=== PATIENT | female | born 1975 | race Caucasian/White ===

== ENCOUNTER → 2017-09-22 | Outpatient (CLI) | payer MEDICARE ==
[~2017-09-22] MED LIST: ACET325 PO; ALBU90OI INH; B Complex1 EAC2; IBUPROFEN200 MG PO; IRON150C; NASACORT10.8 ML NS; QVAR7.3 G1 INH; Vitamin A and1 EACH
[2017-09-22 12:00] LABS: Adenovirus F 40/41 Not Detected (NOT DETECT); Astrovirus Not Detected (NOT DETECT); Campylobacter Sp Not Detected (NOT DETECT); Cryptosporidium Not Detected (NOT DETECT); Cyclospora Cayetanensis Not Detected (NOT DETECT); E. Coli O157 Not Detected (NOT DETECT); Entamoeba Histolytica Not Detected (NOT DETECT); Enteroaggregative E. coli-EAEC Not Detected (NOT DETECT); Enteropathogenic E. coli-EPEC Not Detected (NOT DETECT); Enterotoxigenic E. coli-ETEC Not Detected (NOT DETECT); Giardia Lamblia Not Detected (NOT DETECT); Norovirus GI/GII Not Detected (NOT DETECT); Plesiomonas Shigelloides Not Detected (NOT DETECT); Rotavirus A Not Detected (NOT DETECT); Salmonella Sp Not Detected (NOT DETECT); Sapovirus Not Detected (NOT DETECT); Shiga Toxin-prod E. coli-STEC Not Detected (NOT DETECT); Shigella/Enteroin E. coli-EIEC Not Detected (NOT DETECT); Vibrio Cholerae Not Detected (NOT DETECT); Vibrio Sp Not Detected (NOT DETECT); Yersinia Enterocolitica Not Detected (NOT DETECT)
== END ==
LOC: LAB SHORT 10:15 → LAB UCHC 10:15
PROVIDERS: Nurse Practitioner Primary Care
DX: K30 Functional dyspepsia (principal)
CPT/HCPCS: 87338; 87507

== ENCOUNTER 2018-06-11 08:57 | Day surgery (SDC) | payer MEDICARE ==
[~2018-06-11] VITALS: Ht 154.9 cm; Wt 71.0 kg
[~2018-06-11 08:57] MED LIST changes: +ASTEPRO205.5 MCG/; +CALCIUM 500-VI1 EAC1 PO; +CRINONE1.125 GM TOP; +CYCL10 PO; +DICL75ER PO; +DIGESTIVE ENZY220 MG PO; +Dicyclomine HCl10 MG PO; +ESZO2 PO; +Fruity C250 MG PO; +MAGOXI400 PO; +Nexium40 MG PO; +Nortriptyline H10 MG PO; +PILO5 PO; +Sudogest30 MG PO; +XIIDRA1 EACH BOTHEYES; +[UNRECOGNIZED DRUG - OTHER]; +[UNRECOGNIZED DRUG - REMARK] PO
== END 2018-06-11 11:29 | disposition home or self-care (01) ==
LOC: ORSCSDS 08:57
PROVIDERS: Internal Medicine Gastroenterology
PROC: 0DB68ZX Excision of Stomach, Via Natural or Artificial Opening Endoscopic, Diagnostic (ICD-10-PCS; principal; 2018-06-11 10:15)
PROC: 0DB98ZX Excision of Duodenum, Via Natural or Artificial Opening Endoscopic, Diagnostic (ICD-10-PCS; principal; 2018-06-11 10:15)
PROC: 0DB58ZX Excision of Esophagus, Via Natural or Artificial Opening Endoscopic, Diagnostic (ICD-10-PCS; principal; 2018-06-11 10:15)
DX: R12 Heartburn (principal); K21.9 Gastro-esophageal reflux disease without esophagitis; I10 Essential (primary) hypertension; J45.909 Unspecified asthma, uncomplicated; M79.7 Fibromyalgia; Z79.899 Other long term (current) drug therapy; Z87.891 Personal history of nicotine dependence
CPT/HCPCS: 88305; 88342; J2250; J7120

== ENCOUNTER → 2021-05-15 | Outpatient (CLI) | payer MEDICARE | END | disposition home or self-care (01) | LOC: LAB SHORT 12:36 | DX: N39.0 Urinary tract infection, site not specified (principal) | CPT/HCPCS: 87086 ==

== ENCOUNTER → 2021-11-23 | Outpatient (CLI) | payer MEDICARE ==
[2021-11-27 08:10] LABS: HPV 16 Negative (Negative); HPV 18 Negative (Negative); HPV OTHER HR TYPES Negative (Negative)
== END | disposition home or self-care (01) ==
LOC: LAB SHORT 17:33 → LAB 17:33
PROVIDERS: Advanced Practice Midwife
DX: Z01.419 Encounter for gynecological examination (general) (routine) without abnormal findings (principal)
CPT/HCPCS: 87624; G0123

== ENCOUNTER → 2021-12-27 | Outpatient (CLI) | payer MEDICARE | END | disposition home or self-care (01) | LOC: LAB SHORT 13:28 → LAB 13:28 | DX: T14.8XXA Other injury of unspecified body region, initial encounter (principal); W55.01XD Bitten by cat, subsequent encounter | CPT/HCPCS: 87070; 87075; 87205 ==

== ENCOUNTER → 2022-06-04 | Outpatient (CLI) | payer MEDICARE ==
[2022-06-04 14:28] LABS: C DIFFICILE DNA POSITIVE (Negative)
== END | disposition home or self-care (01) ==
LOC: LAB SHORT 11:00
PROVIDERS: Physician Assistant
DX: R19.7 Diarrhea, unspecified (principal)
CPT/HCPCS: 87324; 87493

== ENCOUNTER 2022-10-01 11:27 | Day surgery (SDC) | payer MEDICARE ==
[~2022-10-01] VITALS: Ht 154.9 cm; Wt 85.8 kg
--- NOTE | 2022-10-01 13:23 | NUR ---
10/01/22 1323 ESTEPHANIA GRIFFIN VS STRIP UNPRINTED PRIOR TO DC. PT STABLE THROUGHOUT EXAMS. END NOTE ORSC.RDS
[2022-10-01 14:09] VITALS: BP 108/80
== END 2022-10-01 14:08 | disposition home or self-care (01) ==
LOC: ORSCSDS 11:27
PROVIDERS: Internal Medicine Gastroenterology
PROC: 0DJD8ZZ Inspection of Lower Intestinal Tract, Via Natural or Artificial Opening Endoscopic (ICD-10-PCS; principal; 2022-10-01 12:45)
PROC: 0DB98ZX Excision of Duodenum, Via Natural or Artificial Opening Endoscopic, Diagnostic (ICD-10-PCS; principal; 2022-10-01 12:45)
PROC: 0DB68ZX Excision of Stomach, Via Natural or Artificial Opening Endoscopic, Diagnostic (ICD-10-PCS; principal; 2022-10-01 12:45)
DX: R10.9 Unspecified abdominal pain (principal); R12 Heartburn; I10 Essential (primary) hypertension; J45.909 Unspecified asthma, uncomplicated; M79.7 Fibromyalgia; Z79.899 Other long term (current) drug therapy; Z87.891 Personal history of nicotine dependence
CPT/HCPCS: 88305; 88342; J2704; J7120

== ENCOUNTER → 2022-12-27 | Outpatient (CLI) | payer MEDICARE ==
[2022-12-27 13:52] LABS: BASOPHILS ABSOLUTE AUTO 0.03 K/mm3 (0.00-0.23); BASOPHILS PERCENT AUTO 1 % (0-2); EOSINOPHILS ABSOLUTE AUTO 0.04 K/mm3 (0.00-0.68); EOSINOPHILS PERCENT AUTO 1 % (0-6); Hematocrit 37.4 % (33.0-51.0); Hemoglobin 12.7 g/dL (11.5-16.0); IMMATURE GRAN ABSOLUTE AUTO 0.01 K/mm3 (0.00-0.10); IMMATURE GRAN PERCENT AUTO 0 % (0-1); LYMPHOCYTES ABSOLUTE AUTO 1.86 K/mm3 (0.84-5.20); LYMPHOCYTES PERCENT AUTO 42 % (21-46); MONOCYTES ABSOLUTE AUTO 0.19 K/mm3 (0.16-1.47); MONOCYTES PERCENT AUTO 4 % (4-13); Mean Corpuscular HGB 31.7 pg (26.0-34.0); Mean Corpuscular Volume 93 fL (80-100); Mean Platelet Volume 9.4 fL (9.1-12.4); NEUTROPHILS ABSOLUTE AUTO 2.28 K/mm3 (1.96-9.15); NEUTROPHILS PERCENT AUTO 52 % (41-73); Platelet Count 343 K/mm3 (150-400); RDW Coefficient Variation 13.3 % (11.7-14.2); RDW Standard Deviation 45.4 fL (35.1-46.3); Red Blood Cell Count 4.01 M/mm3 (3.80-5.20); White Blood Cell Count 4.41 K/mm3 (4.00-11.30)
[2022-12-27 14:04] LABS: Albumin, Blood 4.3 g/dL (3.4-5.0); Albumin/Globulin Ratio 1.1 (0.8-1.8); Bilirubin, Total 0.4 mg/dL (0.1-1.0); Bun/Creatinine Ratio 19.2 (12.0-20.0); Calcium, Blood 9.5 mg/dL (8.5-10.1); Creatinine, Blood 0.78 mg/dL (0.40-1.00); Globulin, Blood 3.9 g/dL (2.2-4.0); Potassium, Blood 3.4 mmol/L (3.5-5.5); Total Protein, Blood 8.2 g/dL (6.4-8.2)
== END | disposition home or self-care (01) ==
LOC: LAB 13:47 → LAB SHORT 13:47
PROVIDERS: Chiropractor
DX: R07.89 Other chest pain (principal)
CPT/HCPCS: 80053; 83690; 84484; 85025

== ENCOUNTER 2024-12-01 06:14 | Day surgery (SDC) | payer MEDICARE ==
[2024-12-01] VITALS (11 sets, daily range): BP systolic 112–135; BP diastolic 48–89
[~2024-12-01] VITALS: Ht 154.9 cm; Wt 95.3 kg
[~2024-12-01 06:14] MED LIST changes: +ATOR20 PO; +BACL10 PO; +FLUTICASONE-SA1 EA11 INH; +Imitrex100 MG PO; +MAGNESIUM250 MG PO; +MIRALAX17 GM PO; +ONDA4 PO; +PSEUDOEPHEDRINE30 M2 PO; +Vitamin B Comple1 EA; +ZYRTEC10 M1 PO; +[UNRECOGNIZED DRUG - OTHER] PO
[2024-12-01] MEDS ORDERED: CeFAZolin Sodium 2,000 MG in NS 100 ML IV SCH (06:15)
[2024-12-01] MEDS ORDERED: ACET500 (07:04)
[2024-12-01] MEDS ORDERED: CeFAZolin Sodium 2,000 MG VIAL ONE (07:06)
[2024-12-01] MEDS ORDERED: Bupivacaine 0.5% HCl 5 MG/ML 30MLVIAL ONE (07:17)
[2024-12-01] MEDS ORDERED: Albuterol HFA200 ACT/6.7 GM INH ONE (07:27)
[2024-12-01] MEDS ORDERED: FentaNYL Citrate 50 MCG/ML 2 ML Injection ONE (07:27)
[2024-12-01] MEDS ORDERED: Midazolam HCl 1MG / ML 2ML Vial ONE (07:28)
--- NOTE | 2024-12-01 07:32 | NUR ---
Ambulatory in Day Surgery W/LIMP. PT STATES SHE HAS A BAD RIGHT ANKLE THAT HAS NOT HEALED AND IS CAUSING HER RIGHT THIGH TO SPASM Pre-Op teaching done. Pt verbalizes understanding. History, Chart, Medications and Allergies reviewed before start of procedure.Patient confirms NPO status and agrees with scheduled surgery. Patient reports completing Chlorhexadine shower X2 prior to admission to hospital.Patient States Post-Procedure ride home has been arranged.
--- NOTE | 2024-12-01 07:33 | NUR ---
PT'S GLASSES GIVEN TO HER AUNT
[2024-12-01] MEDS ORDERED: Rocuronium Bromide 10 MG/ML 5ML Injection IV ONE ×2 (07:35→09:14)
[2024-12-01] MEDS ORDERED: Ondansetron HCl 2 MG / ML 2ML Vial ONE (08:33)
[2024-12-01] MEDS ORDERED: Dexamethasone Sod Phos 10 MG/ML 1ML VIAL ONE (08:33)
[2024-12-01] MEDS ORDERED: ePHEDrine Sulfate 50 MG/ML 1ML Injection ONE (09:16)
[2024-12-01] MEDS ORDERED: FentaNYL Citrate 50 MCG/ML 2 ML Injection IV PRN ×2 (09:25→09:30)
[2024-12-01] MEDS ORDERED: HYDROmorphone HCl/Pf 1MG SYR IV PRN ×2 (09:30)
[2024-12-01] MEDS ORDERED: Ondansetron HCl 2 MG / ML 2ML Vial IV PRN (09:30)
[2024-12-01] MEDS ORDERED: Albuterol 2.5 MG/3 ML VIAL INH PRN (09:30)
[2024-12-01] MEDS ORDERED: HYDROmorphone HCl/Pf 1MG SYR ONE ×2 (09:42→10:08)
[2024-12-01] MEDS ORDERED: Ketorolac Tromethamine 30mg Vial ONE (09:43)
[2024-12-01] MEDS ORDERED: Sugammadex Sodium 200 MG/2ML SDV (100 MG/ML) ONE (09:43)
[2024-12-01] MEDS ORDERED: OxyCODONE 5 mg/Acetamin 325 mg TABLET PO PRN (10:15)
--- NOTE | 2024-12-01 10:42 | NUR ---
REPORT RECEIVED FROM ALEXANDRA BLUE. VSS. PT ON RA. PT ABLE TO REPOSITION SELF IN BED. PT REQUESTING PO FLUIDS AND TOLERATING THEM WELL. PT HAS 4 SURGICAL SITES TO ABD COVERED WITH DERMABOND THAT ARE ALL CDI. PT REPORTS 6/10 ACHING PAIN TO RLQ. PT DENIES NAUSEA OR OTHER DISCOMFORTS.
--- NOTE | 2024-12-01 11:56 | NUR ---
1110: PT UP TO BR W/FWW AND ASSIST BY RN. PT REPORTS PAIN HAS IMPROVED, BUT UPON AMBULATION/GETTING DRESSED AT BEDSIDE SHE REPORTS CONTINUED NAUSEA. PT INSTRUCTED TO TAKE HER ZOFRAN PRESCRIBED ONCE HOME. NO EMESIS BEFORE DISCHARGE. PT MEETS D/C CRITERIA AND VERBALIZES READINESS TO GO HOME. 1120: PT AUNT/RIDE HOME AT BEDSIDE. Discharge instructions reviewed with patient AND HER AUNT Patient verbalizes understanding. Copy given to patient to take home. Dressing to procedure site clean, dry, intact with no visible drainage, swelling, erythema or bruising noted. Discharged via wheelchair to private car for ride home. PT BELONGINGS RETURNED TO PT.
== END 2024-12-01 11:45 | disposition home or self-care (01) ==
LOC: ORSCMMR 06:14 → ORD 07:30 → ORSCMMR 11:45 → ORD 12-10 08:00
PROVIDERS: Surgery
PROC: 0YU74JZ Supplement Right Femoral Region with Synthetic Substitute, Percutaneous Endoscopic Approach (ICD-10-PCS; principal; 2024-12-01 07:30)
PROC: BF031ZZ Plain Radiography of Gallbladder and Bile Ducts using Low Osmolar Contrast (ICD-10-PCS; principal; 2024-12-01 07:30)
PROC: 3E0T3BZ Introduction of Anesthetic Agent into Peripheral Nerves and Plexi, Percutaneous Approach (ICD-10-PCS; principal; 2024-12-01 07:30)
PROC: 0YUA4JZ Supplement Bilateral Inguinal Region with Synthetic Substitute, Percutaneous Endoscopic Approach (ICD-10-PCS; principal; 2024-12-01 07:30)
PROC: 0FT44ZZ Resection of Gallbladder, Percutaneous Endoscopic Approach (ICD-10-PCS; principal; 2024-12-01 07:30)
PROC: 8E0W4CZ Robotic Assisted Procedure of Trunk Region, Percutaneous Endoscopic Approach (ICD-10-PCS; principal; 2024-12-01 07:30)
DX: K40.00 Bilateral inguinal hernia, with obstruction, without gangrene, not specified as recurrent (principal); K41.30 Unilateral femoral hernia, with obstruction, without gangrene, not specified as recurrent; K82.8 Other specified diseases of gallbladder; I10 Essential (primary) hypertension; J45.909 Unspecified asthma, uncomplicated; M35.00 Sjogren syndrome, unspecified; F41.8 Other specified anxiety disorders; M79.7 Fibromyalgia; E66.9 Obesity, unspecified; Z68.39 Body mass index [BMI] 39.0-39.9, adult; E78.5 Hyperlipidemia, unspecified; Z79.899 Other long term (current) drug therapy; Z87.891 Personal history of nicotine dependence
CPT/HCPCS: 88304; A9270; C1781; J0690; J1100; J1171; J1885; J2250; J2405; J2704; J3010; J7120

== ENCOUNTER → 2025-01-03 | Outpatient (CLI) | payer MEDICARE ==
[~2025-01-03] MED LIST changes: +ACET500
== END ==
LOC: LAB 16:24 → LAB SHORT 16:24
DX: R39.9 Unspecified symptoms and signs involving the genitourinary system (principal)
CPT/HCPCS: 87086

== ENCOUNTER → 2025-01-11 | Outpatient (CLI) | payer MEDICARE ==
[2025-01-11 15:13] LABS: Bacterial Vaginosis PCR Negative (NEGATIVE); Candida Group, PCR NOT DETECTED (NOT DETECT); Candida glabrata-krusei, PCR NOT DETECTED (NOT DETECT)
== END ==
LOC: LAB 12:00 → LAB SHORT 12:00
PROVIDERS: Student in an Organized Health Care Education/Training Program
DX: R35.0 Frequency of micturition (principal); R10.2 Pelvic and perineal pain
CPT/HCPCS: 81515

== ENCOUNTER → 2025-04-12 | Outpatient (CLI) | payer MEDICARE | END | disposition home or self-care (01) | LOC: LAB SHORT 12:49 → LAB 12:49 | DX: R30.9 Painful micturition, unspecified (principal) | CPT/HCPCS: 87086 ==